=== PATIENT | male | born 1960 | race Caucasian/White ===

== ENCOUNTER 2018-12-22 05:38 | Day surgery (SDC) | payer OTHER ==
[~2018-12-22] VITALS: Ht 172.7 cm; Wt 72.6 kg
[~2018-12-22 05:38] MED LIST: CELEBREX 200 M200 M1 PO; NORCO 7.5-3251 EACH PO
[2018-12-22 10:24] VITALS: BP 118/72
--- NOTE | 2018-12-23 17:06 | PATH ---
[facility] [address] [place] [address] PATHOLOGY RPT PROCEDURE Name: KALINA ADRIAN Room #: DEP [facility] M.R.#: [id number] ������������������ Admission: 12/22/18 ������������������ Date of : 58 Discharge: 12/22/18 Report #: [id number] Path Case #: [id number] [facility] Accession Number: [id number] . 01 Material submitted: . orbit - LEFT ORBIT. Modifiers: left . 01 Clinical history: . 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 02 Diagnosis: Left orbit calcified scleral shell extensive calcification: - Marked calcific sclerosis, consistent with the provided history. - Scleral tissue showing moderate chronic inflammation along with reactive changes. . (IUV:mml; 12/23/2018) QLM/12/23/2018 . 02 Electronically signed: . Sandra Chavez MD, Pathologist NPI- [id number] . 01 Gross description: . The specimen is received in formalin, labeled "Kalina Adrian, left orbit calcified scleral shell with extensive calcification", are 3 marquez-yellow friable, calcified tissues measuring 0.8 x 0.4 cm, 0.7 x 0.7 cm and 1.1 x 0.5 cm. These fragments are bisected and entirely submitted in A1 after decalcification. ([facility]; 12/22/2018) [facility]/ . 02 Pathologist provided ICD-10: H05.10 . 02 CPT . 828997, 912323 Specimen Comment: A courtesy copy of this report has been sent to Specimen Comment: [phone]. Specimen Comment: Report sent to Performed at: [address] [id number] MD Darrian Melton MD Phone: [phone] Performed at: [address] [id number] [address] [address] PATHOLOGY RPT PROCEDURE Name: KALINA ADRIAN Room #: DEP [facility] Loraine#: [id number] ������������������ Admission: 12/22/18 ������������������ Date of : 58 Discharge: 12/22/18 Report #: [id number] Path Case #: [id number] MD Sandra Chavez MD Phone: [phone]
--- NOTE | 2018-12-26 06:14 | O ---
[facility] [place] [address] OPERATIVE REPORT Name: KALINA ADRIAN Room #: DEP [facility] M..#: [id number] Admission: 12/22/18 ������������������ Attend Phys: Anselmo Hill MD Discharge: 12/22/18 ������������������ Date of : 58 Report #: [id number] THIS REPORT FOR: //name// CC: FAM unknown ULISES SALINAS Anselmo Hill DATE OF SERVICE: 12/22/2018 PREOPERATIVE DIAGNOSES: Left anophthalmia with conjunctival scarring, status post extrusion of orbital implant. POSTOPERATIVE DIAGNOSES: Left anophthalmia with conjunctival scarring, status post extrusion of orbital implant, with extensive calcification of scleral shell. PROCEDURE: Left transconjunctival orbitotomy with excision of calcified sclera, secondary orbital implant with muscles attached to implant, conjunctivoplasty. SURGEON: Anselmo Hill MD. IT PROGRAM AUDITOR: None. ANESTHESIA: General. COMPLICATIONS: None. INDICATIONS FOR SURGERY: This pleasant 58-year-old gentleman underwent an evisceration in 1983 with implantation of a spherical implant into a scleral shell at that point in time. He recently removed his prosthesis only to have his orbital implant fall out. Inspection of his socket shows it is extensively irregularly shaped with an open scleral shell, which precludes him from being able to wear a prosthesis. He presents today for an orbital surgery to attempt to leave his socket in such a position that he would be able to successfully wear a prosthesis. Informed consent was obtained to include but not limited to the potential risk for bleeding, infection and the need for further surgery or treatment. DESCRIPTION OF PROCEDURE: The patient was taken to the operating room where general anesthesia was administered. The left socket was then anesthetized with Xylocaine with epinephrine mixed with Marcaine and Wydase. He was subsequently prepped and draped in the usual sterile fashion. A lid speculum was placed on the left eye while a moistened sponge was placed on the right. A horizontal conjunctival incision was then made across the width of the lid through the irregular cup of the scleral shell. It was quite challenging [address] [address] OPERATIVE REPORT Name: KALINA ADRIAN Room #: DEP [facility] M.R.#: [id number] Admission: 12/22/18 ������������������ Attend Phys: Anselmo Hill MD Discharge: 12/22/18 ������������������ Date of : 58 Report #: [id number] because of the extensive scarring. The dissection was then attempted in the area of tenons laterally only to find that I could not cut the tissue. Closer inspection revealed that the inferior half of the scleral shell was completely calcified. It could not be bent or cut. The decision was then made to remove the calcified scleral shell. The transconjunctival dissection was then undertaken primarily utilizing a Nilesh scissor around the scleral shell, removing the extraocular muscles when they were encountered and removing them in such a manner that they could be reidentified for attachment to the orbital implant later. This scleral shell was removed in 3 separate pieces. Posterior tenons were then opened to allow access to the deeper orbital space for placement of a secondary orbital prosthesis. A size 16 mm sizing sphere just barely fit into the socket, so the decision was made to use a 14 mm. A 14-mm Medpor sphere was then vacuum aspirated in antibiotic irrigation solution and subsequently reposited behind posterior tenons. The extraocular muscles were then attached to the implant with interrupted 5-0 Vicryl sutures. The horizontal rectus muscles were attached, the oblique muscles were not. A part of the anterior tenons were then dissected to allow a secondary covering over the secondary implant. This was also closed with 5-0 Vicryl sutures. The socket was then inspected to figure out where the best conjunctiva was to rotate into position. It turned out to be superotemporally. A conjunctivoplasty was then oriented to be obliquely advanced infranasally from this area. Hemostasis was then re-achieved. The conjunctival flap was then advanced and secured with interrupted 6-0 Vicryl sutures. A small conformer could be placed in the palpebral aperture. Erythromycin ointment was then placed there, followed by Telfa pad, which was held in place with two eye pads, silk tape and Mastisol. The patient was subsequently transported to the recovery area having tolerated the procedures well with no anesthetic or operative complications being noted. ��������������������������������������������� <ELECTRONICALLY SIGNED> ���������������������������������������� By: Anselmo Hill MD ��������������������������������������������� 12/26/18 0614 1154 1224 Anselmo Hill MD /nt
== END 2018-12-22 13:15 | disposition home or self-care (01) ==
LOC: TBA 05:38 → OR 05:38 → TBA 05:39 → OR 10:16
DX: H05.10 Unspecified chronic inflammatory disorders of orbit (principal); Q11.1 Other anophthalmos; H11.242 Scarring of conjunctiva, left eye; H15.89 Other disorders of sclera; Z98.890 Other specified postprocedural states; Z96.89 Presence of other specified functional implants; Z96.651 Presence of right artificial knee joint; Z79.899 Other long term (current) drug therapy; Z88.6 Allergy status to analgesic agent; Z79.891 Long term (current) use of opiate analgesic
CPT/HCPCS: 50010; 50101; 50386; 50398; 51636; 51853; 53500; 56528; 62110; 62900; 64037; 70005